=== PATIENT | male | born 1990 | race Caucasian/White ===

== ENCOUNTER 2017-01-04 12:38 | Inpatient (IN) | payer MEDICAID ==
[~2017-01-04] VITALS: Ht 179.1 cm; Wt 117.0 kg
[2017-01-04] MEDS ORDERED: SODIUM CHLORIDE 0.9% 1,000ML IVBOLUS ONE (13:30)
[2017-01-04] MEDS ORDERED: MAALOX/HYOSCYAMINE/LIDOCAINE 45 ML BOTTLE PO ONE (13:30)
[2017-01-04] MEDS ORDERED: SODIUM CHLORIDE FLUSH 10ML SYR IVF ONE (13:30)
[2017-01-04] MEDS ORDERED: ONDANSETRON 2MG/ML, 2ML IVPush ONE (13:30)
[2017-01-04] MEDS ORDERED: FAMOTIDINE 20 MG/2 ML IVP ONE (13:30)
[2017-01-04] MEDS ORDERED: MAALOX/HYOSCYAMINE/LIDOCAINE 45 ML BOTTLE ONE (13:38)
[2017-01-04] MEDS ORDERED: ONDANSETRON 2MG/ML, 2ML ONE (13:38)
[2017-01-04] MEDS ORDERED: FAMOTIDINE 20 MG/2 ML ONE (13:38)
[2017-01-04 14:05] LABS: HEMOGLOBIN 16.6 g/dL (13.7-18.0)
[2017-01-04 14:18] LABS: ASPARTATE AMINO TRANSFERASE 76 U/L (15-37); BLOOD UREA NITROGEN 8 mg/dL (7-18)
[2017-01-04] MEDS ORDERED: HYDROmorphone 1 MG/ML, 1ML ONE ×2 (14:24→16:13)
[2017-01-04] MEDS ORDERED: HYDROmorphone 2 MG/ML, 1ML IVPush ONE (14:30)
[2017-01-04] MEDS ORDERED: LISI40TA PO (14:41)
[2017-01-04] MEDS ORDERED: QUET50TA5 PO (14:41)
[2017-01-04] MEDS ORDERED: BUPR1FIL3 PO (14:41)
[2017-01-04] MEDS: INSULIN REGULAR 100 UNITS/ML, 3ML VIAL SQ-INSULIN SCH ×2 (16:00→20:39)
[2017-01-04] MEDS ORDERED: ONDANSETRON ODT 4 MG PO PRN (16:00)
[2017-01-04] MEDS ORDERED: ONDANSETRON 2MG/ML, 2ML IVP PRN (16:00)
[2017-01-04] MEDS ORDERED: LORazepam 1MG TABLET PO PRN (16:00)
[2017-01-04] MEDS ORDERED: DOCUSATE 100 MG CAPSULE PO PRN (16:00)
[2017-01-04] MEDS ORDERED: PANTOPRAZOLE 40 MG IV ONE (16:13)
[2017-01-04] MEDS ORDERED: ENOXAPARIN 40 MG/0.4 ML ONE (16:13)
[2017-01-04] MEDS: ENOXAPARIN 40 MG/0.4 ML SQ SCH (16:23)
[2017-01-04] MEDS: SODIUM CHLORIDE 0.9% 1,000 ML IV SCH (16:23)
[2017-01-04] MEDS: HYDROmorphone 2 MG/ML, 1ML IVPush PRN ×2 (16:23→20:37)
[2017-01-04] MEDS: PANTOPRAZOLE 40 MG IV IVPush SCH (16:23)
[2017-01-04 17:29] LABS: HEPATITIS C VIRUS ANTIBODY Nonreactive (Nonreactive)
[2017-01-04 17:50] VITALS: BP 159/104
[2017-01-04 19:10] VITALS: BP 166/109
[2017-01-04] MEDS: LORazepam 2 MG/ML, 1ML IVPush PRN (20:36)
[2017-01-04] MEDS: QUETIAPINE 25MG TABLET PO SCH (20:39)
[2017-01-04 22:40] VITALS: BP 170/109
[2017-01-05 00:32] VITALS: BP 153/111
[2017-01-05] MEDS: HYDROmorphone 2 MG/ML, 1ML IVPush PRN ×5 (01:03→21:39)
[2017-01-05] MEDS: SODIUM CHLORIDE 0.9% 1,000 ML IV SCH ×3 (01:04→20:00)
[2017-01-05] MEDS: LORazepam 2 MG/ML, 1ML IVPush PRN ×3 (01:04→09:18)
[2017-01-05] MEDS: PANTOPRAZOLE 40 MG IV IVPush SCH ×2 (05:22→17:42)
[2017-01-05 05:59] LABS: DAU SCREEN DISCLAIMER
[2017-01-05 06:08] LABS: ASPARTATE AMINO TRANSFERASE 45 U/L (15-37); BLOOD UREA NITROGEN 9 mg/dL (7-18)
[2017-01-05 06:26] LABS: HEMOGLOBIN 15.3 g/dL (13.7-18.0)
[2017-01-05] MEDS: INSULIN REGULAR 100 UNITS/ML, 3ML VIAL SQ-INSULIN SCH ×2 (07:00→11:00)
[2017-01-05 07:19] VITALS: BP 147/91
[2017-01-05] MEDS: FOLIC ACID 1 MG TABLET PO SCH (09:17)
[2017-01-05] MEDS: LISINOPRIL 20 MG TABLET PO SCH (09:17)
[2017-01-05] MEDS: THIAMINE 100MG TABLET PO SCH (09:17)
[2017-01-05] MEDS ORDERED: LABETALOL 5MG/ML, 20ML IVPush PRN (11:00)
[2017-01-05] MEDS ORDERED: LABETALOL 20 MG/4 ML IV PRN (11:00)
[2017-01-05] MEDS ORDERED: SINCALIDE (KINEVAC) 5 MCG ONE (14:59)
[2017-01-05] MEDS: ENOXAPARIN 40 MG/0.4 ML SQ SCH (17:41)
[2017-01-05 20:57] VITALS: BP 145/92
[2017-01-05] MEDS: QUETIAPINE 25MG TABLET PO SCH (21:39)
[2017-01-06] MEDS: HYDROmorphone 2 MG/ML, 1ML IVPush PRN ×3 (01:48→10:52)
[2017-01-06 02:35] VITALS: BP 149/85
[2017-01-06] MEDS: SODIUM CHLORIDE 0.9% 1,000 ML IV SCH ×3 (04:45→20:46)
[2017-01-06] MEDS: PANTOPRAZOLE 40 MG IV IVPush SCH ×2 (04:53→17:51)
[2017-01-06] MEDS: LORazepam 2 MG/ML, 1ML IVPush PRN (05:04)
[2017-01-06 06:03] LABS: HEMOGLOBIN 14.4 g/dL (13.7-18.0)
[2017-01-06 06:11] LABS: BLOOD UREA NITROGEN 9 mg/dL (7-18)
[2017-01-06 06:15] LABS: ASPARTATE AMINO TRANSFERASE 25 U/L (15-37)
[2017-01-06 07:21] VITALS: BP 150/56
[2017-01-06] MEDS: FOLIC ACID 1 MG TABLET PO SCH (09:22)
[2017-01-06] MEDS: LISINOPRIL 20 MG TABLET PO SCH (09:23)
[2017-01-06] MEDS: THIAMINE 100MG TABLET PO SCH (09:23)
[2017-01-06] MEDS: LORazepam 0.5MG TABLET PO PRN ×2 (10:01→20:46)
[2017-01-06] MEDS: LORazepam 1MG TABLET PO SCH ×2 (13:47→20:49)
[2017-01-06] MEDS: HYDROcodone/APAP 10/325 MG TABLET PO SCH ×2 (13:47→20:46)
[2017-01-06 14:01] VITALS: BP 148/103
[2017-01-06] MEDS: ENOXAPARIN 40 MG/0.4 ML SQ SCH (17:51)
[2017-01-06 19:04] VITALS: BP 133/98
[2017-01-06] MEDS: QUETIAPINE 25MG TABLET PO SCH (20:47)
[2017-01-07 01:47] VITALS: BP 129/85
[2017-01-07] MEDS: HYDROcodone/APAP 10/325 MG TABLET PO SCH ×3 (01:51→14:21)
[2017-01-07] MEDS: PANTOPRAZOLE 40 MG IV IVPush SCH (05:18)
[2017-01-07] MEDS: LORazepam 1MG TABLET PO SCH ×2 (05:18→14:00)
[2017-01-07] MEDS: SODIUM CHLORIDE 0.9% 1,000 ML IV SCH ×2 (05:19→12:00)
[2017-01-07 05:39] LABS: HEMOGLOBIN 13.7 g/dL (13.7-18.0)
[2017-01-07 05:49] LABS: BLOOD UREA NITROGEN 7 mg/dL (7-18)
[2017-01-07 06:55] VITALS: BP 148/98
[2017-01-07] MEDS ORDERED: POTASSIUM CHLORIDE 20 MEQ TAB.ER.PRT PO ONE (08:00)
[2017-01-07] MEDS: FOLIC ACID 1 MG TABLET PO SCH (09:04)
[2017-01-07] MEDS: LISINOPRIL 20 MG TABLET PO SCH (09:04)
[2017-01-07] MEDS: THIAMINE 100MG TABLET PO SCH (09:05)
[2017-01-07 12:50] VITALS: BP 150/93
[2017-01-07] MEDS ORDERED: PNEUMOCOCCAL 23 VACCINE IM-VACC ONE (13:30)
[2017-01-07] MEDS ORDERED: FLU VACC QS2016-17 (36MOS+)UP/PF 0.5 ML IM-VACC ONE (13:30)
== END 2017-01-07 16:15 | disposition home or self-care (01) | DRG 439 ==
LOC: ED 14:45 → EDIP 15:13 → 4EST 17:47
PROVIDERS: ADMIT Internal Medicine; ATTEND Internal Medicine
DX: K85.90 Acute pancreatitis without necrosis or infection, unspecified (principal); F11.20 Opioid dependence, uncomplicated; I11.9 Hypertensive heart disease without heart failure; G47.00 Insomnia, unspecified; R73.9 Hyperglycemia, unspecified; F17.210 Nicotine dependence, cigarettes, uncomplicated; Z71.6 Tobacco abuse counseling; Z23 Encounter for immunization; Z82.49 Family history of ischemic heart disease and other diseases of the circulatory system; Z83.3 Family history of diabetes mellitus
CPT/HCPCS: 36415; 76700; 78227; 80048; 80053; 80061; 80074; 80307; 82962; 83036; 83690; 85025; 85610; 90686; 90732; 96361; 96372; 96374; 96375; 96376; J1170; J1650; J2405; A9537; C9113; C9898; J2060; J2805; J7030; S0028

== ENCOUNTER 2018-02-18 18:03 | Emergency (ER) | payer MEDICAID ==
[~2018-02-18] VITALS: Ht 177.8 cm; Wt 96.9 kg
[~2018-02-18 18:03] MED LIST: BUPR1FIL3 PO; LISI40TA PO; QUET50TA5 PO
[2018-02-18 18:54] LABS: BASOPHILS # (AUTO) 0.07 x10^3/uL (0-0.1); BASOPHILS % (AUTO) 1 % (0-1); EOSINOPHILS # (AUTO) 0.08 x10^3/uL (0-0.4); EOSINOPHILS % (AUTO) 1 % (1-7); LYMPHOCYTES # (AUTO) 1.54 x10^3/uL (1-3.4); LYMPHOCYTES % (AUTO) 15 % (22-44); MD NO; MEAN CORPUSCULAR HEMOGLOBIN 31.9 pg (27.5-34.5); MEAN CORPUSCULAR HGB CONC 33.9 g/dL (33.2-36.2); MEAN CORPUSCULAR VOLUME 94.1 fL (81-97); MEAN PLATELET VOLUME 6.9 fL (7.4-10.4); MONOCYTES # (AUTO) 0.82 x10^3/uL (0.2-0.8); MONOCYTES % (AUTO) 8 % (2-9); NEUTROPHILS # (AUTO) 8.09 x10^3/uL (1.8-6.8); NEUTROPHILS % (AUTO) 76 % (42-75); PLATELET COUNT 250 x10^3/uL (130-400); RED BLOOD COUNT 5.43 x10^6/uL (4.38-5.82); RED CELL DISTRIBUTION WIDTH 14.6 % (9.4-14.8)
[2018-02-18 19:06] LABS: ALBUMIN 4.4 g/dL (3.4-5.0); ANION GAP 10 mmol/L (5-15); CALCIUM 9.1 mg/dL (8.5-10.1); CHLORIDE 103 mmol/L (98-107)
[2018-02-18 19:16] LABS: CREATININE 0.78 mg/dL (0.7-1.3)
[2018-02-18] MEDS ORDERED: AMOX1TAB12 PO (19:33)
[2018-02-18] MEDS ORDERED: TRAZ100T15 PO (19:33)
[2018-02-18] MEDS ORDERED: QUET50TA5 PO (19:33)
[2018-02-18] MEDS ORDERED: SODIUM CHLORIDE 0.9% 1,000ML IVBOLUS ONE (20:00)
[2018-02-18] MEDS ORDERED: DOXYCYCLINE 100 MG in DEXTROSE 5% 250 ML IV ONE (20:00)
[2018-02-18] MEDS ORDERED: DEXAMETHASONE 4 MG/ML, 1ML IVPush ONE (20:00)
[2018-02-18] MEDS ORDERED: SODIUM CHLORIDE FLUSH 10ML SYR IVF ONE (20:00)
[2018-02-18] MEDS ORDERED: DEXAMETHASONE 4 MG/ML, 5ML ONE (20:11)
[2018-02-18] MEDS ORDERED: OMNIPAQUE 350 MG/ML, 100ML BOTTLE ONE (20:30)
[2018-02-18 21:08] VITALS: BP 139/93
== END 2018-02-18 21:11 | disposition home or self-care (01) ==
LOC: ED 20:45
DX: J04.0 Acute laryngitis (principal)
CPT/HCPCS: 36415; 70491; 71045; 80048; 82040; 83605; 84436; 84443; 85025; 86308; 87040; 87081; 87254; 87880; 96365; 96375; 99285; J1100; J7030; J7060; Q9967

== ENCOUNTER 2018-02-21 06:57 | Inpatient (IN) | payer MEDICAID ==
[~2018-02-21] VITALS: Ht 177.8 cm; Wt 94.9 kg
[~2018-02-21 06:57] MED LIST changes: +AMOX1TAB12 PO; +TRAZ100T15 PO
[2018-02-21] MEDS ORDERED: SODIUM CHLORIDE 0.9% 1,000ML IVBOLUS ONE (08:00)
[2018-02-21] MEDS ORDERED: THIAMINE 100MG TABLET PO ONE (08:00)
[2018-02-21] MEDS ORDERED: SODIUM CHLORIDE FLUSH 10ML SYR IVF ONE (08:00)
[2018-02-21 08:15] LABS: MEAN CORPUSCULAR HEMOGLOBIN 31.8 pg (27.5-34.5); MEAN CORPUSCULAR HGB CONC 34.2 g/dL (33.2-36.2); MEAN CORPUSCULAR VOLUME 92.9 fL (81-97); MEAN PLATELET VOLUME 7.2 fL (7.4-10.4); PLATELET COUNT 205 x10^3/uL (130-400); RED BLOOD COUNT 5.14 x10^6/uL (4.38-5.82); RED CELL DISTRIBUTION WIDTH 15.1 % (9.4-14.8)
[2018-02-21 08:16] LABS: ALANINE AMINOTRANSFERASE 50 U/L (12-78); ALBUMIN 4.1 g/dL (3.4-5.0); ANION GAP 11 mmol/L (5-15); CALCIUM 8.6 mg/dL (8.5-10.1); CHLORIDE 103 mmol/L (98-107); CREATININE 0.72 mg/dL (0.7-1.3)
[2018-02-21] MEDS ORDERED: LORazepam 2 MG/ML, 1ML ONE ×3 (08:16→10:18)
[2018-02-21 08:17] LABS: TROPONIN I < 0.015 ng/mL (0.000-0.045)
[2018-02-21] MEDS ORDERED: THIAMINE 100MG TABLET ONE (08:17)
[2018-02-21 08:18] LABS: ALKALINE PHOSPHATASE 67 U/L (45-117); BILIRUBIN,TOTAL 1.1 mg/dL (0.2-1.0); TOTAL PROTEIN 8.3 g/dL (6.4-8.2)
[2018-02-21] MEDS: LORazepam 2 MG/ML, 1ML IVPush PRN ×5 (08:27→18:22)
[2018-02-21 08:47] LABS: BASOPHILS # (AUTO) 0.02 x10^3/uL (0-0.1); BASOPHILS % (AUTO) 0 % (0-1); EOSINOPHILS % (AUTO) 0 % (1-7); LYMPHOCYTES # (AUTO) 0.73 x10^3/uL (1-3.4); LYMPHOCYTES % (AUTO) 6 % (22-44); MD SCAN; MONOCYTES # (AUTO) 0.77 x10^3/uL (0.2-0.8); MONOCYTES % (AUTO) 6 % (2-9); NEUTROPHILS # (AUTO) 11.37 x10^3/uL (1.8-6.8); NEUTROPHILS % (AUTO) 88 % (42-75)
[2018-02-21] MEDS: SODIUM CHLORIDE 0.9% 1,000 ML IV SCH ×2 (10:54→22:09)
[2018-02-21] MEDS ORDERED: ONDANSETRON 2MG/ML, 2ML IVPush PRN (11:00)
[2018-02-21] MEDS ORDERED: hydrALAzine 20 MG/ML, 1ML IVPush PRN (11:00)
[2018-02-21] MEDS: PANTOPRAZOLE 40 MG IV IVPush SCH ×2 (11:41→20:53)
[2018-02-21 11:45] VITALS: BP 177/127
[2018-02-21] MEDS: NICOTINE 21 MG/24 HR PATCH.TD24 TD SCH (11:46)
[2018-02-21] MEDS: morphine SULFATE 10 MG/ML, 1ML IVPush PRN ×3 (12:06→20:53)
[2018-02-21 12:15] VITALS: BP 157/103
[2018-02-21] MEDS: POTASSIUM CHLORIDE 20 MEQ, MAGNESIUM SULFATE 1 GM, FOLIC ACID 1 MG, THIAMINE 200 MG, MV... IV SCH (13:41)
[2018-02-21 14:01] VITALS: BP 165/101
[2018-02-21 19:16] VITALS: BP 141/95
[2018-02-22] MEDS: morphine SULFATE 10 MG/ML, 1ML IVPush PRN ×4 (00:06→11:54)
[2018-02-22 00:56] VITALS: BP 148/108
[2018-02-22] MEDS: LORazepam 2 MG/ML, 1ML IVPush PRN ×3 (01:06→10:09)
[2018-02-22] MEDS: SODIUM CHLORIDE 0.9% 1,000 ML IV SCH ×2 (04:42→11:20)
[2018-02-22 05:38] LABS: MEAN CORPUSCULAR HEMOGLOBIN 32.6 pg (27.5-34.5); MEAN CORPUSCULAR HGB CONC 34.8 g/dL (33.2-36.2); MEAN CORPUSCULAR VOLUME 93.7 fL (81-97); MEAN PLATELET VOLUME 7.9 fL (7.4-10.4); PLATELET COUNT 147 x10^3/uL (130-400); RED BLOOD COUNT 4.81 x10^6/uL (4.38-5.82); RED CELL DISTRIBUTION WIDTH 14.6 % (9.4-14.8)
[2018-02-22 05:55] LABS: ALANINE AMINOTRANSFERASE 33 U/L (12-78); ALBUMIN 3.3 g/dL (3.4-5.0); ANION GAP 6 mmol/L (5-15); CALCIUM 8.1 mg/dL (8.5-10.1); CHLORIDE 102 mmol/L (98-107); CREATININE 0.73 mg/dL (0.7-1.3)
[2018-02-22 06:10] LABS: ALKALINE PHOSPHATASE 51 U/L (45-117); BILIRUBIN,TOTAL 1.1 mg/dL (0.2-1.0); TOTAL PROTEIN 7.2 g/dL (6.4-8.2)
[2018-02-22 06:19] LABS: MD YES
[2018-02-22 06:22] LABS: BAND#(MANUAL) 3.86 x10^3/uL; BANDS%(MANUAL) 21 % (0-7); LYMPH#(MANUAL) 0.18 x10^3/uL (1-3.4); LYMPHS% (MANUAL) 1 % (22-44); MONOS% (MANUAL) 6 % (2-9); SEG#(MANUAL) 13.25 x10^3/uL (1.8-6.8); SEGS% (MANUAL) 72 % (42-75)
[2018-02-22 06:23] LABS: <PLATELET ESTIMATE> ADEQUATE; <PLT MORPHOLOGY> NORMAL PLT MORPH; <RBC MORPHOLOGY> NORMAL
[2018-02-22 07:02] VITALS: BP 151/101
[2018-02-22] MEDS: PANTOPRAZOLE 40 MG IV IVPush SCH (10:09)
[2018-02-22] MEDS ORDERED: MORPHINE SULFATE 4 MG/ML, 1ML ONE (11:51)
[2018-02-22] MEDS: POTASSIUM CHLORIDE 20 MEQ, MAGNESIUM SULFATE 1 GM, FOLIC ACID 1 MG, THIAMINE 200 MG, MV... IV SCH (11:53)
[2018-02-22] MEDS: NICOTINE 21 MG/24 HR PATCH.TD24 TD SCH (11:54)
== END 2018-02-22 17:06 | disposition left against medical advice (07) | DRG 439 ==
LOC: ED 08:50 → EDIP 09:33 → SUATTDRO 10:08 → 3NE 11:09
PROVIDERS: ADMIT Internal Medicine; ATTEND Internal Medicine
DX: K85.20 Alcohol induced acute pancreatitis without necrosis or infection (principal); F10.239 Alcohol dependence with withdrawal, unspecified; R65.10 Systemic inflammatory response syndrome (SIRS) of non-infectious origin without acute organ dysfunction; F17.200 Nicotine dependence, unspecified, uncomplicated; F19.90 Other psychoactive substance use, unspecified, uncomplicated; I10 Essential (primary) hypertension; M54.2 Cervicalgia; Z53.21 Procedure and treatment not carried out due to patient leaving prior to being seen by health care provider; J35.1 Hypertrophy of tonsils; J04.0 Acute laryngitis; F12.90 Cannabis use, unspecified, uncomplicated; Z91.19 Patient's noncompliance with other medical treatment and regimen; Z82.49 Family history of ischemic heart disease and other diseases of the circulatory system; Z80.9 Family history of malignant neoplasm, unspecified
CPT/HCPCS: 36415; 71045; 80053; 80307; 83690; 83735; 84100; 84484; 85025; 93005; 96360; J3411; J3475; J3480; J7042; C9113; J0360; J2060; J2270; J7030

== ENCOUNTER 2018-05-09 06:12 | Inpatient (IN) | payer MEDICAID ==
[~2018-05-09] VITALS: Ht 177.8 cm; Wt 95.0 kg
[~2018-05-09 06:12] MED LIST changes: +TRAZ-137 PO; -TRAZ100T15 PO
[2018-05-09] MEDS ORDERED: ONDANSETRON 2MG/ML, 2ML ONE (06:50)
[2018-05-09] MEDS ORDERED: FAMOTIDINE 20 MG/2 ML ONE (06:51)
[2018-05-09] MEDS ORDERED: LORazepam 2 MG/ML, 1ML ONE ×2 (06:51→17:22)
[2018-05-09] MEDS ORDERED: SODIUM CHLORIDE FLUSH 10ML SYR IVF ONE (07:00)
[2018-05-09] MEDS ORDERED: FAMOTIDINE 20 MG/2 ML IVP ONE (07:00)
[2018-05-09] MEDS ORDERED: SODIUM CHLORIDE 0.9% 1,000ML IVBOLUS ONE (07:00)
[2018-05-09] MEDS ORDERED: LORazepam 2 MG/ML, 1ML IVPush ONE ×2 (07:00→17:30)
[2018-05-09] MEDS ORDERED: ONDANSETRON 2MG/ML, 2ML IVPush ONE (07:00)
[2018-05-09 07:16] LABS: BASOPHILS # (AUTO) 0.03 x10^3/uL (0-0.1); BASOPHILS % (AUTO) 1 % (0-1); EOSINOPHILS # (AUTO) 0.01 x10^3/uL (0-0.4); EOSINOPHILS % (AUTO) 0 % (1-7); LYMPHOCYTES # (AUTO) 1.15 x10^3/uL (1-3.4); LYMPHOCYTES % (AUTO) 20 % (22-44); MD NO; MEAN CORPUSCULAR HEMOGLOBIN 31.5 pg (27.5-34.5); MEAN CORPUSCULAR HGB CONC 34.1 g/dL (33.2-36.2); MEAN CORPUSCULAR VOLUME 92.5 fL (81-97); MEAN PLATELET VOLUME 6.5 fL (7.4-10.4); MONOCYTES # (AUTO) 0.47 x10^3/uL (0.2-0.8); MONOCYTES % (AUTO) 8 % (2-9); NEUTROPHILS # (AUTO) 4.18 x10^3/uL (1.8-6.8); NEUTROPHILS % (AUTO) 72 % (42-75); PLATELET COUNT 197 x10^3/uL (130-400); RED BLOOD COUNT 5.15 x10^6/uL (4.38-5.82); RED CELL DISTRIBUTION WIDTH 14.4 % (9.4-14.8)
[2018-05-09 07:27] LABS: ANION GAP 12 mmol/L (5-15); CALCIUM 8.8 mg/dL (8.5-10.1); CHLORIDE 106 mmol/L (98-107)
[2018-05-09 07:30] LABS: ALANINE AMINOTRANSFERASE 78 U/L (12-78); ALKALINE PHOSPHATASE 99 U/L (45-117); BILIRUBIN,TOTAL 0.5 mg/dL (0.2-1.0); CREATININE 0.75 mg/dL (0.7-1.3); TOTAL PROTEIN 8.7 g/dL (6.4-8.2)
[2018-05-09 09:42] VITALS: BP 155/99
[2018-05-09] MEDS: SODIUM CHLORIDE 0.9% 1,000 ML IV SCH ×2 (10:28→17:10)
[2018-05-09] MEDS ORDERED: LORazepam 2 MG/ML, 1ML IVPush PRN (10:30)
[2018-05-09] MEDS ORDERED: HALOPERIDOL 5 MG/ML IM PRN (10:30)
[2018-05-09 12:17] VITALS: BP 157/92
[2018-05-09 15:47] VITALS: BP 159/100
[2018-05-09] MEDS ORDERED: CHLORDIAZEPOXIDE 10 MG CAPSULE ONE (17:23)
[2018-05-09] MEDS: ENOXAPARIN 40 MG/0.4 ML SQ SCH (17:28)
[2018-05-09] MEDS ORDERED: CHLORDIAZEPOXIDE 25 MG CAPSULE PO PRN (17:30)
[2018-05-09] MEDS ORDERED: POLYETHYLENE GLYCOL 17 GM PACKET PO PRN (17:30)
[2018-05-09] MEDS ORDERED: LORazepam 1MG TABLET PO PRN ×3 (17:30)
[2018-05-09] MEDS ORDERED: GUAIFENESIN/DM 200-20MG, 10ML UDC PO PRN (17:30)
[2018-05-09] MEDS ORDERED: ONDANSETRON ODT 4 MG PO PRN (17:30)
[2018-05-09] MEDS ORDERED: CHLORDIAZEPOXIDE 10 MG CAPSULE PO ONE (17:30)
[2018-05-09] MEDS ORDERED: ONDANSETRON 2MG/ML, 2ML IVPush PRN (17:30)
[2018-05-09] MEDS ORDERED: LORazepam 2 MG/ML, 1ML IV PRN ×5 (17:30)
[2018-05-09 17:39] LABS: FREE T4 (FREE THYROXINE) 0.75 ng/dL (0.76-1.46); THYROID STIMULATING HORMONE 2.41 mIU/L (0.358-3.740)
[2018-05-09] MEDS: LORazepam 1MG TABLET PO PRN (17:59)
[2018-05-09] MEDS: POTASSIUM CHLORIDE 20 MEQ, MAGNESIUM SULFATE 1 GM, FOLIC ACID 1 MG, THIAMINE 200 MG, MV... IV SCH (17:59)
[2018-05-09] MEDS ORDERED: CHLORDIAZEPOXIDE 5 MG CAPSULE PO ONE (18:30)
[2018-05-09 19:35] LABS: AMPHETAMINE SCREEN, URINE Negative (Negative); BARBITURATE SCREEN, URINE Negative (Negative); BENZODIAZEPINE SCREEN, URINE Negative (Negative); CANNABINOID SCREEN, URINE Negative (Negative); COCAINE SCREEN, URINE Negative (Negative); METHADONE SCREEN, URINE Negative (Negative); OPIATE SCREEN, URINE Negative (Negative)
[2018-05-09 20:30] VITALS: BP 160/89
[2018-05-09] MEDS: TRAZODONE 100MG TABLET PO SCH (21:25)
[2018-05-10] VITALS (8 sets, daily range): BP systolic 144–181; BP diastolic 78–121
[2018-05-10] MEDS: SODIUM CHLORIDE 0.9% 1,000 ML IV SCH ×3 (03:07→20:29)
[2018-05-10 05:37] LABS: BASOPHILS # (AUTO) 0.05 x10^3/uL (0-0.1); BASOPHILS % (AUTO) 1 % (0-1); EOSINOPHILS # (AUTO) 0.08 x10^3/uL (0-0.4); EOSINOPHILS % (AUTO) 1 % (1-7); LYMPHOCYTES # (AUTO) 1.08 x10^3/uL (1-3.4); LYMPHOCYTES % (AUTO) 17 % (22-44); MD NO; MEAN CORPUSCULAR HEMOGLOBIN 31.5 pg (27.5-34.5); MEAN CORPUSCULAR VOLUME 92.7 fL (81-97); MEAN PLATELET VOLUME 7.4 fL (7.4-10.4); MONOCYTES # (AUTO) 0.55 x10^3/uL (0.2-0.8); MONOCYTES % (AUTO) 9 % (2-9); NEUTROPHILS # (AUTO) 4.49 x10^3/uL (1.8-6.8); NEUTROPHILS % (AUTO) 72 % (42-75); PLATELET COUNT 130 x10^3/uL (130-400); RED BLOOD COUNT 4.72 x10^6/uL (4.38-5.82); RED CELL DISTRIBUTION WIDTH 14.1 % (9.4-14.8)
[2018-05-10 05:40] LABS: ANION GAP 8 mmol/L (5-15); CALCIUM 8.6 mg/dL (8.5-10.1); CHLORIDE 100 mmol/L (98-107)
[2018-05-10 05:41] LABS: ALBUMIN 3.3 g/dL (3.4-5.0)
[2018-05-10 05:44] LABS: ALANINE AMINOTRANSFERASE 60 U/L (12-78); ALKALINE PHOSPHATASE 81 U/L (45-117); CREATININE 0.71 mg/dL (0.7-1.3); TOTAL PROTEIN 7.5 g/dL (6.4-8.2)
[2018-05-10] MEDS ORDERED: PANTOPRAZOLE 40 MG IV IVPush SCH (07:30)
[2018-05-10] MEDS ORDERED: MAGNESIUM SULFATE PMX 4GM/100M 100 ML IVPB ONE (08:00)
[2018-05-10] MEDS: SENNA/DOCUSATE TABLET PO SCH (08:35)
[2018-05-10] MEDS: LORazepam 1MG TABLET PO PRN (08:45)
[2018-05-10] MEDS: POTASSIUM CHLORIDE 20 MEQ TAB.ER.PRT PO SCH ×2 (08:46→17:47)
[2018-05-10] MEDS ORDERED: SERT100T PO (12:43)
[2018-05-10] MEDS: LORazepam 0.5MG TABLET PO PRN ×3 (13:12→20:28)
[2018-05-10] MEDS: LABETALOL 5MG/ML, 20ML IVPush PRN (13:47)
[2018-05-10] MEDS: ENOXAPARIN 40 MG/0.4 ML SQ SCH (17:47)
[2018-05-10] MEDS: POTASSIUM CHLORIDE 20 MEQ, MAGNESIUM SULFATE 1 GM, FOLIC ACID 1 MG, THIAMINE 200 MG, MV... IV SCH (18:13)
[2018-05-10] MEDS: TRAZODONE 100MG TABLET PO SCH (20:28)
[2018-05-11] MEDS: LORazepam 0.5MG TABLET PO PRN ×4 (00:48→17:56)
[2018-05-11] MEDS: LABETALOL 5MG/ML, 20ML IVPush PRN ×2 (00:48→20:47)
[2018-05-11 01:25] VITALS: BP 164/108
[2018-05-11] MEDS: SODIUM CHLORIDE 0.9% 1,000 ML IV SCH ×2 (04:47→08:42)
[2018-05-11 05:28] LABS: ANION GAP 9 mmol/L (5-15); CHLORIDE 103 mmol/L (98-107)
[2018-05-11 05:36] LABS: BASOPHILS # (AUTO) 0.03 x10^3/uL (0-0.1); BASOPHILS % (AUTO) 0 % (0-1); EOSINOPHILS # (AUTO) 0.03 x10^3/uL (0-0.4); EOSINOPHILS % (AUTO) 0 % (1-7); LYMPHOCYTES % (AUTO) 12 % (22-44); MD NO; MEAN CORPUSCULAR HEMOGLOBIN 32.4 pg (27.5-34.5); MEAN CORPUSCULAR HGB CONC 34.6 g/dL (33.2-36.2); MEAN CORPUSCULAR VOLUME 93.5 fL (81-97); MEAN PLATELET VOLUME 8.1 fL (7.4-10.4); MONOCYTES # (AUTO) 0.53 x10^3/uL (0.2-0.8); MONOCYTES % (AUTO) 6 % (2-9); NEUTROPHILS % (AUTO) 82 % (42-75); PLATELET COUNT 114 x10^3/uL (130-400); RED BLOOD COUNT 4.36 x10^6/uL (4.38-5.82); RED CELL DISTRIBUTION WIDTH 13.7 % (9.4-14.8)
[2018-05-11] MEDS: SENNA/DOCUSATE TABLET PO SCH (08:09)
[2018-05-11 08:20] VITALS: BP 143/92
[2018-05-11] MEDS: PANTOPROZOLE 40MG TABLET PO SCH (08:38)
[2018-05-11] MEDS: POTASSIUM CHLORIDE 20 MEQ TAB.ER.PRT PO SCH ×2 (10:08→11:24)
[2018-05-11] MEDS ORDERED: THIAMINE 100MG TABLET PO ONE (11:00)
[2018-05-11] MEDS: BACLOFEN 10 MG TABLET PO SCH ×3 (11:23→20:43)
[2018-05-11] MEDS: SERTRALINE 100MG TABLET PO SCH (11:24)
[2018-05-11] MEDS: MULTIVITAMIN 1 TABLET PO SCH (11:24)
[2018-05-11] MEDS: CHLORDIAZEPOXIDE 25 MG CAPSULE PO SCH ×3 (11:24→20:44)
[2018-05-11] MEDS: FOLIC ACID 1 MG TABLET PO SCH (11:24)
[2018-05-11] MEDS: MAGNESIUM OXIDE 400 MG TABLET PO SCH ×2 (11:24→20:43)
[2018-05-11 13:35] VITALS: BP 165/119
[2018-05-11 15:02] VITALS: BP 160/95
[2018-05-11 15:50] LABS: CLOSTRIDIUM DIFFICILE ANTIGEN NEGATIVE; CLOSTRIDIUM DIFFICILE TOXIN NEGATIVE (Negative)
[2018-05-11] MEDS: ENOXAPARIN 40 MG/0.4 ML SQ SCH (17:45)
[2018-05-11] MEDS ORDERED: LOPERAMIDE 2 MG CAPSULE PO PRN (18:30)
[2018-05-11 19:50] VITALS: BP 166/109
[2018-05-11] MEDS: TRAZODONE 100MG TABLET PO SCH (20:44)
[2018-05-11 21:45] VITALS: BP 150/90
[2018-05-12 01:31] VITALS: BP 142/92
[2018-05-12 05:15] LABS: ANION GAP 6 mmol/L (5-15); CALCIUM 8.7 mg/dL (8.5-10.1); CHLORIDE 104 mmol/L (98-107); CREATININE 0.75 mg/dL (0.7-1.3)
[2018-05-12] MEDS: CHLORDIAZEPOXIDE 25 MG CAPSULE PO SCH ×2 (06:20→11:14)
[2018-05-12 07:36] VITALS: BP 143/94
[2018-05-12] MEDS: PANTOPROZOLE 40MG TABLET PO SCH (07:44)
[2018-05-12] MEDS: SENNA/DOCUSATE TABLET PO SCH (09:00)
[2018-05-12] MEDS: MULTIVITAMIN 1 TABLET PO SCH (09:01)
[2018-05-12] MEDS: FOLIC ACID 1 MG TABLET PO SCH (09:01)
[2018-05-12] MEDS: MAGNESIUM OXIDE 400 MG TABLET PO SCH (09:01)
[2018-05-12] MEDS: LORazepam 1MG TABLET PO PRN (09:02)
[2018-05-12] MEDS: SERTRALINE 100MG TABLET PO SCH (09:02)
[2018-05-12] MEDS: BACLOFEN 10 MG TABLET PO SCH (09:02)
[2018-05-12] MEDS ORDERED: PANT40TA5 PO (11:08)
[2018-05-12] MEDS ORDERED: BACL-19 PO (11:08)
[2018-05-12] MEDS ORDERED: MULT1TAB60 PO (11:08)
[2018-05-12] MEDS ORDERED: MAGN400T26 PO (11:08)
[2018-05-12] MEDS ORDERED: CHLO25CA9 PO (11:08)
[2018-05-12] MEDS ORDERED: THIA100T10 PO (11:08)
[2018-05-12] MEDS ORDERED: FOLI-17 PO (11:09)
[2018-05-12 12:15] VITALS: BP 135/86
== END 2018-05-12 12:50 | disposition home or self-care (01) | DRG 641 ==
LOC: ED 07:40 → EDIP 08:12 → 4EST 09:42
PROVIDERS: ADMIT Hospitalist; ATTEND Hospitalist
DX: E87.6 Hypokalemia (principal); F10.239 Alcohol dependence with withdrawal, unspecified; F10.229 Alcohol dependence with intoxication, unspecified; F12.90 Cannabis use, unspecified, uncomplicated; F17.210 Nicotine dependence, cigarettes, uncomplicated; F41.9 Anxiety disorder, unspecified; I10 Essential (primary) hypertension; R00.0 Tachycardia, unspecified; R19.7 Diarrhea, unspecified; F19.10 Other psychoactive substance abuse, uncomplicated; E83.42 Hypomagnesemia; Z82.49 Family history of ischemic heart disease and other diseases of the circulatory system; R11.2 Nausea with vomiting, unspecified
CPT/HCPCS: 36415; 87046; 87427; 99285; J7121; S0028; 80048; 80053; 80307; 83690; 83735; 84100; 84439; 84443; 85025; 87324; 89055; 93005; 96374; 96375; J1650; J2405; J3411; J3475; J3480; J2060; J7030

== ENCOUNTER 2018-05-22 20:42 | Emergency (ER) | payer MEDICAID ==
[~2018-05-22] VITALS: Ht 177.8 cm; Wt 90.1 kg
[~2018-05-22 20:42] MED LIST changes: +BACL-19 PO; +CHLO25CA9 PO; +FOLI-17 PO; +MAGN400T26 PO; +MULT1TAB60 PO; +PANT40TA5 PO; +SERT100T PO; +THIA100T10 PO
[2018-05-22] MEDS ORDERED: ONDANSETRON ODT 4 MG PO ONE (21:30)
[2018-05-22] MEDS ORDERED: THIAMINE 100MG TABLET PO ONE (21:30)
[2018-05-22] MEDS ORDERED: LORazepam 1MG TABLET PO ONE (21:30)
[2018-05-22] MEDS ORDERED: THIAMINE 100MG TABLET ONE (21:36)
[2018-05-22] MEDS ORDERED: LORazepam 1MG TABLET ONE (21:36)
[2018-05-22] MEDS ORDERED: ONDANSETRON ODT 4 MG ONE (21:37)
[2018-05-22 21:38] VITALS: BP 127/57
== END 2018-05-22 21:42 | disposition home or self-care (01) ==
LOC: ED 21:36
DX: F10.220 Alcohol dependence with intoxication, uncomplicated (principal); I10 Essential (primary) hypertension; R10.84 Generalized abdominal pain; R11.0 Nausea
CPT/HCPCS: 99284; Q0162

== ENCOUNTER 2018-05-23 14:54 | Emergency (ER) | payer MEDICAID ==
[~2018-05-23] VITALS: Ht 177.8 cm; Wt 89.8 kg
[2018-05-23] MEDS ORDERED: BACITRACIN ZINC OINT 500U/GM, 0.9 GM ONE (15:29)
[2018-05-23] MEDS ORDERED: ONDANSETRON ODT 4 MG PO ONE (15:30)
[2018-05-23] MEDS ORDERED: THIAMINE 100MG TABLET PO ONE (15:30)
[2018-05-23] MEDS ORDERED: SODIUM CHLORIDE 0.9% 1,000ML IVBOLUS ONE (15:30)
[2018-05-23] MEDS ORDERED: SODIUM CHLORIDE FLUSH 10ML SYR IVF ONE (15:30)
[2018-05-23 15:38] LABS: BASOPHILS # (AUTO) 0.08 x10^3/uL (0-0.1); BASOPHILS % (AUTO) 1 % (0-1); EOSINOPHILS # (AUTO) 0.13 x10^3/uL (0-0.4); EOSINOPHILS % (AUTO) 2 % (1-7); LYMPHOCYTES # (AUTO) 2.48 x10^3/uL (1-3.4); LYMPHOCYTES % (AUTO) 31 % (22-44); MD NO; MEAN CORPUSCULAR HEMOGLOBIN 31.8 pg (27.5-34.5); MEAN CORPUSCULAR HGB CONC 33.8 g/dL (33.2-36.2); MEAN PLATELET VOLUME 6.1 fL (7.4-10.4); MONOCYTES # (AUTO) 0.47 x10^3/uL (0.2-0.8); MONOCYTES % (AUTO) 6 % (2-9); NEUTROPHILS # (AUTO) 4.77 x10^3/uL (1.8-6.8); NEUTROPHILS % (AUTO) 60 % (42-75); PLATELET COUNT 690 x10^3/uL (130-400); RED BLOOD COUNT 5.25 x10^6/uL (4.38-5.82); RED CELL DISTRIBUTION WIDTH 14.4 % (9.4-14.8)
[2018-05-23] MEDS ORDERED: THIAMINE 100MG TABLET ONE (15:44)
[2018-05-23] MEDS ORDERED: ONDANSETRON ODT 4 MG ONE (15:44)
[2018-05-23 15:50] LABS: ALANINE AMINOTRANSFERASE 58 U/L (12-78); ALBUMIN 3.7 g/dL (3.4-5.0); ANION GAP 8 mmol/L (5-15); CALCIUM 8.6 mg/dL (8.5-10.1); CHLORIDE 111 mmol/L (98-107); CREATININE 0.74 mg/dL (0.7-1.3)
[2018-05-23 15:55] LABS: ALKALINE PHOSPHATASE 74 U/L (45-117); BILIRUBIN,TOTAL 0.2 mg/dL (0.2-1.0); TOTAL PROTEIN 8.3 g/dL (6.4-8.2)
[2018-05-23 16:00] LABS: ACETAMINOPHEN < 2 mcg/mL (10-30); SALICYLATE LEVEL < 1.7 mg/dL (2.8-20.0)
[2018-05-23 16:34] LABS: AMPHETAMINE SCREEN, URINE Negative (Negative); BARBITURATE SCREEN, URINE Negative (Negative); BENZODIAZEPINE SCREEN, URINE Positive (Negative); CANNABINOID SCREEN, URINE Negative (Negative); COCAINE SCREEN, URINE Negative (Negative); METHADONE SCREEN, URINE Negative (Negative); OPIATE SCREEN, URINE Negative (Negative)
[2018-05-23] MEDS ORDERED: LORazepam 2 MG/ML, 1ML ONE ×2 (18:20→23:27)
[2018-05-23] MEDS: LORazepam 2 MG/ML, 1ML IVPush PRN ×3 (18:24→23:35)
[2018-05-23 23:41] VITALS: BP 142/98
[2018-05-24] MEDS ORDERED: LORazepam 1MG TABLET ONE (03:23)
[2018-05-24] MEDS ORDERED: LORazepam 1MG TABLET PO ONE (03:30)
== END 2018-05-24 03:44 | disposition home or self-care (01) ==
LOC: ED 16:56
DX: F10.220 Alcohol dependence with intoxication, uncomplicated (principal); I10 Essential (primary) hypertension; Z79.899 Other long term (current) drug therapy
CPT/HCPCS: 36415; 80053; 80307; 80329; 83690; 85025; 93005; 96374; 96376; 99285; J2060; J7030; Q0162; G0480

== ENCOUNTER 2018-08-28 10:55 | Emergency (ER) | payer MEDICAID ==
[~2018-08-28] VITALS: Ht 177.8 cm; Wt 87.1 kg
[2018-08-28] MEDS ORDERED: KETOROLAC 30 MG/1 ML IM ONE (11:30)
[2018-08-28] MEDS ORDERED: KETOROLAC 30 MG/1 ML ONE (11:40)
[2018-08-28] MEDS ORDERED: LISI-170 PO (12:17)
[2018-08-28 13:15] VITALS: BP 134/89
== END 2018-08-28 13:17 | disposition home or self-care (01) ==
LOC: ED 13:00
DX: M25.512 Pain in left shoulder (principal); M54.2 Cervicalgia; I10 Essential (primary) hypertension; F17.200 Nicotine dependence, unspecified, uncomplicated
CPT/HCPCS: 72125; 96372; 99284; J1885

== ENCOUNTER 2018-09-03 12:17 | Emergency (ER) | payer MEDICAID ==
[~2018-09-03] VITALS: Ht 180.3 cm; Wt 99.4 kg
[~2018-09-03 12:17] MED LIST changes: +LISI-170 PO
[2018-09-03 12:30] VITALS: BP 132/99
== END 2018-09-03 14:37 | disposition left against medical advice (07) ==
LOC: ED 14:00
DX: M25.512 Pain in left shoulder (principal); F10.129 Alcohol abuse with intoxication, unspecified; Z76.0 Encounter for issue of repeat prescription; Z53.21 Procedure and treatment not carried out due to patient leaving prior to being seen by health care provider

== ENCOUNTER 2018-10-22 23:29 | Emergency (ER) | payer MEDICAID ==
[~2018-10-22] VITALS: Ht 157.5 cm; Wt 99.1 kg
[2018-10-23 00:13] LABS: BASOPHILS # (AUTO) 0.03 x10^3/uL (0-0.1); BASOPHILS % (AUTO) 0 % (0-1); EOSINOPHILS # (AUTO) 0.08 x10^3/uL (0-0.4); EOSINOPHILS % (AUTO) 1 % (1-7); LYMPHOCYTES % (AUTO) 26 % (22-44); MD NO; MEAN CORPUSCULAR HEMOGLOBIN 31.2 pg (27.5-34.5); MEAN CORPUSCULAR HGB CONC 34.6 g/dL (33.2-36.2); MEAN CORPUSCULAR VOLUME 90.2 fL (81-97); MEAN PLATELET VOLUME 7.9 fL (7.4-10.4); MONOCYTES # (AUTO) 0.58 x10^3/uL (0.2-0.8); MONOCYTES % (AUTO) 6 % (2-9); NEUTROPHILS # (AUTO) 6.19 x10^3/uL (1.8-6.8); NEUTROPHILS % (AUTO) 67 % (42-75); PLATELET COUNT 317 x10^3/uL (130-400); RED BLOOD COUNT 5.36 x10^6/uL (4.38-5.82); RED CELL DISTRIBUTION WIDTH 13.3 % (9.4-14.8)
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
[2018-10-23 00:23] LABS: ALBUMIN 4.7 g/dL (3.4-5.0); ANION GAP 8 mmol/L (5-15); CALCIUM 9.1 mg/dL (8.5-10.1); CHLORIDE 103 mmol/L (98-107)
[2018-10-23 00:27] LABS: ALANINE AMINOTRANSFERASE 44 U/L (12-78); ALKALINE PHOSPHATASE 59 U/L (45-117); BILIRUBIN,TOTAL 0.6 mg/dL (0.2-1.0); CREATININE 0.94 mg/dL (0.7-1.3); TOTAL PROTEIN 8.6 g/dL (6.4-8.2)
[2018-10-23 00:28] LABS: ACETAMINOPHEN < 2 mcg/mL (10-30); SALICYLATE LEVEL < 1.7 mg/dL (2.8-20.0)
[2018-10-23 00:41] LABS: AMPHETAMINE SCREEN, URINE Negative (Negative); BARBITURATE SCREEN, URINE Negative (Negative); BENZODIAZEPINE SCREEN, URINE Positive (Negative); CANNABINOID SCREEN, URINE Negative (Negative); COCAINE SCREEN, URINE Negative (Negative); METHADONE SCREEN, URINE Negative (Negative); OPIATE SCREEN, URINE Negative (Negative)
--- NOTE | 2018-10-23 01:25 | NUR ---
pt resting on gurney with eyes closed, snoring, nadn, equal chest rise/fall observed, sitter at doorway for continous monitoring.
--- NOTE | 2018-10-23 02:10 | NUR ---
pt resting with eyes closed, nadn, repositioned self on gurney, equal chest rise/fall observed, sitter at doorway for continous monitoring.
--- NOTE | 2018-10-23 03:01 | NUR ---
pt resting with eyes open, nadn, denies pain or needs, sitter at doorway for continous monitoring.
--- NOTE | 2018-10-23 04:06 | NUR ---
NO RESPONS FROM I. SECOND CALL MADE AT THIS TIME.
--- NOTE | 2018-10-23 04:13 | NUR ---
pt resting with eyes closed, nadn, equal chest rise/fall observed, sitter at doorway for continous monitoring.
--- NOTE | 2018-10-23 04:20 | NUR ---
[facility]BI (Kasia) updated on pt status, h/x, labs
--- NOTE | 2018-10-23 05:08 | NUR ---
pt resting with eyes closed, equal chest rise/fall observed, sitter at doorway for continous monitoring.
--- NOTE | 2018-10-23 06:08 | NUR ---
HBI at pt's bedside
--- NOTE | 2018-10-23 06:17 | NUR ---
pt resting on gurney, HBI at bedside, nad, denies needs, sitter at doorway for continous monitoring.
--- NOTE | 2018-10-23 07:05 | NUR ---
REPORT GIVEN TO LANNY MOREAU
--- NOTE | 2018-10-23 07:05 | NUR ---
received report from Linda. pt sleeping on gurney camly, NAD with equal chest rise/fall, no needs at this time, pt remains in safe environment, sitter in view, WCTM.
--- NOTE | 2018-10-23 08:03 | NUR ---
pt continues sleep on gurney calmly, NAD with equal chest rise/fall, no needs at this time, pt remains in safe environment, sitter in view, WCTM.
--- NOTE | 2018-10-23 08:31 | NUR ---
breakfast tray given
--- NOTE | 2018-10-23 09:03 | NUR ---
pt ate breakfast & calmly back to sleep on gurney, cooperative & responds approp to staff, NAD, comfort measures provided, pt remains in safe environment, sitter in view, WCTM.
--- NOTE | 2018-10-23 10:00 | NUR ---
pt calmly sleeping on gurney, NAD with equal chest rise/fall, no needs at this time, pt remains in safe environment, sitter in view, WCTM.
--- NOTE | 2018-10-23 10:24 | NUR ---
THROUGHPUT RN: PACKET FAXED TO [facility], [facility], AND [facility].
--- NOTE | 2018-10-23 11:05 | NUR ---
pt continues to calmly sleep on gurney, NAD with equal chest rise/fall, no needs at this time, pt remains in safe environment, sitter in view, WCTM.
--- NOTE | 2018-10-23 12:01 | NUR ---
pt calmly sleeping on gurney, responds approp to staff, NAD with equal chest rise/fall, no needs at this time, pt remains in safe environment, sitter in view, WCTM.
--- NOTE | 2018-10-23 12:18 | NUR ---
SUSANNA RN: SPOKE W/ KAMERON FROM .T.. WHO STATES SHE WILL GET APPROVAL OF NEED FOR [facility] AND WILL CALL BACK W/ A STEPHANIE ETA.
--- NOTE | 2018-10-23 12:32 | NUR ---
report given to Suzie ([facility])
[2018-10-23 12:56] VITALS: BP 158/88
--- NOTE | 2018-10-23 12:57 | NUR ---
pt upright on gurney awake, calm & cooperative, lunch tray given, responds approp to staff, NAD, comfort measures provided, pt remains in safe environment, sitter in full view.
--- NOTE | 2018-10-23 13:57 | NUR ---
pt remains upright on gurney awake, calm & cooperative, ate lunch & now watching TV, responds approp to staff, NAD, comfort measures provided, pt remains in safe environment, sitter in full view.
== END 2018-10-23 14:42 ==
LOC: ED 10-23 00:22
DX: F32.9 Major depressive disorder, single episode, unspecified (principal); F10.129 Alcohol abuse with intoxication, unspecified; I10 Essential (primary) hypertension; F17.200 Nicotine dependence, unspecified, uncomplicated
CPT/HCPCS: 36415; 80053; 80307; 80329; 85025; 99285; G0480

== ENCOUNTER 2018-12-19 19:55 | Emergency (ER) | payer MEDICAID ==
[~2018-12-19] VITALS: Ht 177.8 cm; Wt 100.0 kg
[2018-12-19 20:08] VITALS: BP 171/111
--- NOTE | 2018-12-19 20:20 | NUR ---
PT PLACED IN HOSPITAL GOWN. PT GIVEN SHEET.
[2018-12-19] MEDS ORDERED: BUSP5TAB2 PO (21:03)
[2018-12-19] MEDS ORDERED: GABAPENTIN PO (21:03)
--- NOTE | 2018-12-19 21:04 | NUR ---
PT REMOVED ALL MONITORS, IS SITTING ON EDGE OF BED. STATED HE DOESN'T LIKE TO FEEL TIED DOWN. PT ASKING TO LEAVE ALL MONITORS OFF. PT UP WALKING WROUND ROOM WITH STEADY GAIT PLAYING REGHDmessagingE MUSIC. WILL CONTINUE TO MONITOR.
[2018-12-19 21:35] LABS: MICROSCOPIC AUTO
--- NOTE | 2018-12-19 21:35 | NUR ---
PT ABLE TO PROVIDE URINE SAMPLE. URINE TUBED AND WALKED TO LAB.
[2018-12-19 21:36] LABS: CULTURE INDICATED? NO
[2018-12-19 21:45] LABS: BASOPHILS # (AUTO) 0.06 x10^3/uL (0-0.1); BASOPHILS % (AUTO) 1 % (0-1); EOSINOPHILS # (AUTO) 0.05 x10^3/uL (0-0.4); EOSINOPHILS % (AUTO) 1 % (1-7); LYMPHOCYTES # (AUTO) 1.27 x10^3/uL (1-3.4); LYMPHOCYTES % (AUTO) 28 % (22-44); MD NO; MEAN CORPUSCULAR HEMOGLOBIN 30.8 pg (27.5-34.5); MEAN CORPUSCULAR HGB CONC 34.3 g/dL (33.2-36.2); MEAN CORPUSCULAR VOLUME 89.9 fL (81-97); MEAN PLATELET VOLUME 6.6 fL (7.4-10.4); MONOCYTES # (AUTO) 0.33 x10^3/uL (0.2-0.8); MONOCYTES % (AUTO) 7 % (2-9); NEUTROPHILS # (AUTO) 2.83 x10^3/uL (1.8-6.8); NEUTROPHILS % (AUTO) 62 % (42-75); PLATELET COUNT 279 x10^3/uL (130-400); RED BLOOD COUNT 5.19 x10^6/uL (4.38-5.82); RED CELL DISTRIBUTION WIDTH 15.5 % (9.4-14.8)
[2018-12-19 21:56] LABS: ALANINE AMINOTRANSFERASE 56 U/L (12-78); ALBUMIN 4.2 g/dL (3.4-5.0); ANION GAP 8 mmol/L (5-15); CALCIUM 8.4 mg/dL (8.5-10.1); CHLORIDE 110 mmol/L (98-107); CREATININE 1.05 mg/dL (0.7-1.3)
[2018-12-19 21:58] LABS: ALKALINE PHOSPHATASE 51 U/L (45-117); BILIRUBIN,TOTAL 0.2 mg/dL (0.2-1.0); CREATINE KINASE, TOTAL 724 U/L (39-308); TOTAL PROTEIN 8.1 g/dL (6.4-8.2)
--- NOTE | 2018-12-19 22:21 | NUR ---
PT LAYING IN BLACK LAUGHING AT KENZIE MCKEON VIDEOS ON HIS PHONE. NO DISTRESS NOTED. PT UP FOR RECHECK, ALL RESULTS BACK.
== END 2018-12-19 23:19 | disposition home or self-care (01) ==
LOC: ED 23:13
DX: R53.1 Weakness (principal); I10 Essential (primary) hypertension; Z72.9 Problem related to lifestyle, unspecified
CPT/HCPCS: 36415; 80053; 81001; 82550; 83690; 85025; 99283

== ENCOUNTER 2019-09-01 21:16 | Emergency (ER) | payer MEDICAID ==
[~2019-09-01] VITALS: Ht 180.3 cm; Wt 95.0 kg
[~2019-09-01 21:16] MED LIST changes: +BUSP5TAB2 PO; +GABAPENTIN PO
[2019-09-01 21:17] VITALS: BP 113/69
--- NOTE | 2019-09-01 21:19 | NUR ---
pt waking up, arguing w/ staff, wants to leave, Dr. Lira in room.
--- NOTE | 2019-09-01 21:34 | NUR ---
pt cooperating. ST on monitor. admits to heroin/meth use. denies SI. hx heroin overdose x2. IN narcan by bystander x1 and by EMS x1. Pt now verbal, A&Ox4 GCS 15. placed on nasal cannula. Small sips water per Dr. Lira report to Jaqu[facility] [place].
--- NOTE | 2019-09-01 21:52 | NUR ---
RN went to bedside and patient verbalized being sorry and stated his appreciation and stated he would be cooperative. While RN was accross the duron the patient stated he was leaving. RN informed patient he was on a legal hold and that security and [place] [employer] would arrest him. Patient stated he would stay. While RN was administering medications to another patient RN noticed patient in the duron, had removed iv and started walking out the CT exit. RN then informed pharmacist in charge owner, patient was visualized on security cameras. [employer] was then called at 2150 approximately 10 minutes later. A description was given to dispatch. Direction of travel (out to [facility]) along with patient's clothing.
[2019-09-01] MEDS ORDERED: ZIPRASIDONE 20 MG INJ IM ONE (22:00)
== END 2019-09-01 22:09 ==
LOC: ED 22:00
DX: T40.1X1A Poisoning by heroin, accidental (unintentional), initial encounter (principal); T43.621A Poisoning by amphetamines, accidental (unintentional), initial encounter; F11.20 Opioid dependence, uncomplicated; F17.200 Nicotine dependence, unspecified, uncomplicated; I10 Essential (primary) hypertension; Z72.9 Problem related to lifestyle, unspecified; Z72.89 Other problems related to lifestyle; Y92.9 Unspecified place or not applicable
CPT/HCPCS: 99283

== ENCOUNTER 2019-09-01 23:11 | Emergency (ER) | payer MEDICAID, OTHER ==
[2019-09-01 23:16] VITALS: BP 159/95
--- NOTE | 2019-09-01 23:46 | NUR ---
DR KELLY AT FOR MEDICAL CLEARANCE OF PT. PT DETERMINED TO BE MEDICALLY CLEARED FOR INTERMEDIATE. PT IN POLICE CUSTODY WITH STATE UNIFORMED OFFICERS AT THIS TIME. OFFICERS PROVIDED WITH D/C SUMMARY. PT AMBULATES TO AMBULANCE BAY WITH OFFICERS IN HANDCUFFS WITH STEADY GAIT.
== END 2019-09-01 23:51 | disposition home or self-care (01) ==
LOC: ED 23:47
DX: F11.20 Opioid dependence, uncomplicated (principal); I10 Essential (primary) hypertension; F17.200 Nicotine dependence, unspecified, uncomplicated; F15.120 Other stimulant abuse with intoxication, uncomplicated; Z02.89 Encounter for other administrative examinations
CPT/HCPCS: 93005; 99283

== ENCOUNTER 2020-01-20 05:30 | Emergency (ER) | payer MEDICAID ==
[~2020-01-20] VITALS: Ht 177.8 cm; Wt 90.6 kg
[~2020-01-20 05:30] MED LIST changes: -TRAZ-137 PO; +TRAZ-175 PO
--- NOTE | 2020-01-20 05:51 | NUR ---
Patient presents to ER c/o intermittent epigastric pain with N/V/D. Patient states he drinks alcohol everyday. His last drink was approx 40 minutes ago. Patient has a hx of pancreatitis. Patient is in NAD. Respirations even and unlabored.
[2020-01-20] MEDS ORDERED: FAMOTIDINE 20 MG TABLET PO ONE (06:00)
[2020-01-20] MEDS ORDERED: MAALOX/HYOSCYAMINE/LIDOCAINE 45 ML BTL PO ONE (06:00)
[2020-01-20] MEDS ORDERED: ONDANSETRON ODT 8 MG PO ONE (06:00)
[2020-01-20] MEDS ORDERED: MAALOX/HYOSCYAMINE/LIDOCAINE 45 ML BTL ONE (06:05)
[2020-01-20] MEDS ORDERED: FAMOTIDINE 20 MG TABLET ONE (06:05)
[2020-01-20] MEDS ORDERED: ONDANSETRON ODT 8 MG ONE (06:05)
[2020-01-20] MEDS ORDERED: SERT100T PO (06:12)
[2020-01-20 06:32] LABS: BASOPHILS # (AUTO) 0.04 x10^3/uL (0-0.1); BASOPHILS % (AUTO) 0 % (0-1); EOSINOPHILS % (AUTO) 1 % (1-7); LYMPHOCYTES # (AUTO) 1.65 x10^3/uL (1-3.4); LYMPHOCYTES % (AUTO) 12 % (22-44); MD NO; MEAN CORPUSCULAR HEMOGLOBIN 30.1 pg (27.5-34.5); MEAN CORPUSCULAR HGB CONC 33.9 g/dL (33.2-36.2); MEAN CORPUSCULAR VOLUME 88.7 fL (81-97); MEAN PLATELET VOLUME 6.8 fL (7.4-10.4); MONOCYTES # (AUTO) 0.67 x10^3/uL (0.2-0.8); MONOCYTES % (AUTO) 5 % (2-9); NEUTROPHILS # (AUTO) 10.85 x10^3/uL (1.8-6.8); NEUTROPHILS % (AUTO) 82 % (42-75); PLATELET COUNT 315 x10^3/uL (130-400); RED BLOOD COUNT 6.06 x10^6/uL (4.38-5.82)
[2020-01-20 06:43] LABS: ALANINE AMINOTRANSFERASE 37 U/L (12-78); ALBUMIN 4.3 g/dL (3.4-5.0); ANION GAP 13 mmol/L (5-15); CALCIUM 8.8 mg/dL (8.5-10.1); CHLORIDE 103 mmol/L (98-107)
[2020-01-20 06:46] LABS: ALKALINE PHOSPHATASE 65 U/L (45-117); BILIRUBIN,TOTAL 0.8 mg/dL (0.2-1.0); CREATININE 0.86 mg/dL (0.7-1.3); TOTAL PROTEIN 8.5 g/dL (6.4-8.2)
--- NOTE | 2020-01-20 07:45 | NUR ---
Report received. Pt sleeping in bed, no distress. Remains on monitors. MTF. Cont to monitor.
--- NOTE | 2020-01-20 09:00 | NUR ---
Pt with steady gait, ok for D/C. Pt is able to care for self. Pt has all own belingings upon D/C. Verbalized understanding of D/C instructions.
[2020-01-20 09:01] VITALS: BP 154/98
== END 2020-01-20 09:03 | disposition home or self-care (01) ==
LOC: ED 06:12
DX: K29.20 Alcoholic gastritis without bleeding (principal); F10.120 Alcohol abuse with intoxication, uncomplicated; Y90.9 Presence of alcohol in blood, level not specified
CPT/HCPCS: 36415; 76700; 80053; 80307; 83690; 83735; 85025; 99284; Q0162

== ENCOUNTER 2020-06-06 14:10 | Emergency (ER) | payer MEDICAID ==
[~2020-06-06] VITALS: Ht 177.8 cm; Wt 86.9 kg
[~2020-06-06 14:10] MED LIST changes: +MULT-449 PO; -MULT1TAB60 PO; -PANT40TA5 PO; +PANT40TA6 PO
--- NOTE | 2020-06-06 14:27 | NUR ---
SEAMSTRESS FITTER. PT CALLED X1 FROM LOBBY, NO ANSWER.
[2020-06-06 14:34] VITALS: BP 138/84
--- NOTE | 2020-06-06 14:40 | NUR ---
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 PER ER TATYANA GARCIA PT TO BE D/C FROM TRIAGE. PT DENIES SI, JUST HERE FOR MED REFILL.
== END 2020-06-06 15:16 | disposition home or self-care (01) ==
LOC: ED 14:30
DX: F32.9 Major depressive disorder, single episode, unspecified (principal); Z76.0 Encounter for issue of repeat prescription; I10 Essential (primary) hypertension
CPT/HCPCS: 99281

== ENCOUNTER 2020-08-28 16:24 | Emergency (ER) | payer MEDICAID ==
[~2020-08-28] VITALS: Ht 177.8 cm; Wt 93.1 kg
[2020-08-28 16:30] VITALS: BP 134/78
--- NOTE | 2020-08-28 16:36 | NUR ---
PT REQUESTING MEDICATIONS, NO SI/HI. PT CALM IN TRAIGE.
--- NOTE | 2020-08-28 16:46 | NUR ---
Patient/Caregiver given discharge instructions and they have confirmed that they understand the instructions. Patient ambulatory with steady gait.
== END 2020-08-28 16:48 | disposition home or self-care (01) ==
LOC: ED 16:42
DX: F10.10 Alcohol abuse, uncomplicated (principal); Z76.0 Encounter for issue of repeat prescription; F17.210 Nicotine dependence, cigarettes, uncomplicated; F32.9 Major depressive disorder, single episode, unspecified; I10 Essential (primary) hypertension; Z72.9 Problem related to lifestyle, unspecified
CPT/HCPCS: 93005; 99283; 99406

== ENCOUNTER 2020-09-11 14:37 | Emergency (ER) | payer MEDICAID ==
[~2020-09-11] VITALS: Ht 177.8 cm; Wt 91.0 kg
[2020-09-11 14:53] VITALS: BP 131/64
--- NOTE | 2020-09-11 15:52 | NUR ---
XR RESULTED, PT IS UP FOR RECHECK.
--- NOTE | 2020-09-11 16:55 | NUR ---
PT WANDERING HALLS, REQUESTING TO LEAVE AND USE PHONE PRIOR TO MEDICATION. PT AMBULATED TO DC DESK W/ WALKER.
[2020-09-11] MEDS ORDERED: OXYcodone/APAP 5/325MG TABLET PO ONE (17:00)
--- NOTE | 2020-09-11 17:01 | NUR ---
PT DOES NOT WANT TO RETURN TO ROOM FOR MEDS. VERBALIZED UNDERSTANDING OF DC INSTRUCTIONS. RESP EVEN AND UNLABORED, VIKRAM.
== END 2020-09-11 17:05 | disposition home or self-care (01) ==
LOC: ED 16:14
DX: S70.11XA Contusion of right thigh, initial encounter (principal); S09.90XA Unspecified injury of head, initial encounter; I10 Essential (primary) hypertension; Y04.8XXA Assault by other bodily force, initial encounter; Y93.89 Activity, other specified; Y92.89 Other specified places as the place of occurrence of the external cause; Y99.8 Other external cause status
CPT/HCPCS: 99283